=== PATIENT | male | born 1945 | race Caucasian/White ===

== ENCOUNTER 2017-07-29 16:39 | Emergency (ER) | payer MEDICARE, BC ==
[~2017-07-29] VITALS: Ht 172.7 cm; Wt 101.2 kg
[~2017-07-29 16:39] MED LIST: ACET-1966 PO; ASPI81TA94 PO; BUSP15TA69 PO; BUSP30TA18 PO; CEPH250C37 PO; CIPR-214 PO; DIAZ-311 PO; DIPH-740 PO; FAMO20TA28 PO; FENO145T PO; GABA-549 PO; HYDR-2966 PO; HYDR-318 PO; LISI-374 PO; MELA1TAB15 PO; NIF10 PO; PAZO200T2 PO; SERT-181 PO; SIMV-54 PO; TEMA-1 PO
[2017-07-29] MEDS ORDERED: LISI20TA29 PO (16:48)
[2017-07-29] MEDS ORDERED: amLODIPine BESYL(*) 5 MG TAB PO ONE (17:00)
--- NOTE | 2017-07-29 17:07 | ER Report ---
History and Physical Time Seen By MD: 16:45 Hx. of Stated Complaint: PT REPORTS CHANGES IN BLOOD PRESSURE, CHANGES IN MEDS HPI/ROS CHIEF COMPLAINT: htn HISTORY OF PRESENT ILLNESS: Pt has cancer and has had one kidney and prostate removed. PT currently in a chemo study in [place] and was told on Jul 20 that he should try to get off his HCTZ 25mg and decrease his Lisinipril 40mg due to the effect it is having on his remaining kidney function. PT stopped his hctz completely and decreased his lisinipril to 25mg. PT did not start any new blood pressure medications. PT has been keeping a blood pressure log and has found his blood pressure to be elevated ever since he has stopped his hctz and decreased his lisinipril. PT has had no headaches or cp. Pt came here today to get his blood pressure under control and then he planned on restarting his hctz and lisinipril at his old dosages. Pt states he has not spoken to his oncologist or pcp about other bp alternatives that may not effect his renal function. REVIEW OF SYSTEMS: Constitutional: No fever, no chills. Eyes: No discharge. ENT: No sore throat. Cardiovascular: No chest pain, no palpitations. Respiratory: No cough, no shortness of breath. Gastrointestinal: No abdominal pain, no vomiting. Genitourinary: No hematuria. Musculoskeletal: No back pain. Skin: No rashes. Neurological: No headache. Allergies: Coded Allergies: No Known Drug Allergies (Unverified , 07/29/17) Home Meds Reported Medications Lisinopril (LISINOPRIL) 20 Mg Tablet, 20 MG PO QDAY, TAB 07/29/17 Gabapentin (GABAPENTIN) 300 Mg Capsule, 300 MG PO DAILY, CAPSULE 04/09/17 Diphenhydramine Hcl (BENADRYL) 25 Mg Capsule, 25 MG PO HS, CAPSULE 04/09/17 Acetaminophen (TYLENOL) 325 Mg Tablet, 325 MG PO HS, TAB 04/09/17 Melatonin/Pyridoxine (MELATONIN 5 MG TABLET) 1 Each Tablet, 1 EACH PO HS Y for SLEEP 04/09/17 Buspirone Hcl (BUSPIRONE HCL) 30 Mg Tablet, 30 MG PO HS, #10 TAB 04/09/17 Buspirone Hcl (BUSPIRONE HCL) 15 Mg Tablet, 15 MG PO QAM, #10 TAB 04/09/17 Pazopanib Hcl (VOTRIENT) 200 Mg Tablet, 4 TAB PO DAILY 06/23/13 Simvastatin (SIMVASTATIN) 40 Mg Tablet, 40 MG PO HS 02/07/13 Sertraline Hcl (SERTRALINE HCL) 100 Mg Tablet, 1 TAB PO QDAY TAKE ONE TABLET BY MOUTH EVERY DAY 02/07/13 Aspirin (ASPIRIN) 81 Mg Tab.chew, 81 MG PO DAILY 02/07/13 Fenofibrate Nanocrystallized (FENOFIBRATE) 145 Mg Tablet, 145 MG PO QDAY 02/07/13 Diazepam (DIAZEPAM) 10 Mg Tablet, 10 MG PO HS Y for ANXIETY, #15 MG 02/07/13 Discontinued Reported Medications Hydrochlorothiazide (HYDROCHLOROTHIAZIDE) 25 Mg Tablet, 1 TAB PO QDAY TAKE ONE TABLET BY MOUTH EVERY DAY 02/07/13 Lisinopril (LISINOPRIL) 40 Mg Tablet, 40 MG PO QDAY 02/07/13 Past Medical/Surgical History PMhx: stoke in 1998, diabetes, hypertension, hypercholesterolemia, CPAP at night, Prostate Cancer in 2009, Fractures, PTSD, Anxiety, and Depression. He reports a history of renal cell carcinoma with mets to lungs and Pancreas. Pshx: cholecystectomy in 2004, Left Nephrectomy, and Tonsillectomy. Reviewed Nurses Notes: Yes Old Medical Records Reviewed: Yes Hx Smoking: No Smoking Status: Former Smoker Exposure to Second Hand Smoke?: No Hx Substance Use Disorder: No Hx Alcohol Use: No Constitutional Vital Sign - Last 24 Hours 07/29/17 07/29/17 07/29/17 07/29/17 16:40 16:44 16:47 16:49 Temp 97.7 Pulse 49 48 Resp 16 B/P (MAP) 194/96 196/104 (134) 194/96 (128) Pulse Ox 93 93 O2 Delivery Room Air 07/29/17 07/29/17 07/29/17 07/29/17 16:59 17:00 17:05 17:10 Pulse 47 48 50 B/P (MAP) 195/98 (130) Pulse Ox 93 90 89 07/29/17 07/29/17 07/29/17 07/29/17 17:15 17:20 17:23 17:25 Pulse 50 49 50 B/P (MAP) 186/98 (127) Pulse Ox 90 90 07/29/17 07/29/17 17:30 17:35 Pulse 48 49 B/P (MAP) 158/91 (113) Pulse Ox 91 91 Physical Exam General Appearance: The patient is alert, has no immediate need for airway protection and no signs of toxicity. Eyes: Pupils equal and round no pallor or injection, EOMI ENT: no pharyngeal erythema or exudates, Mucous membranes are moist Respiratory: There are no retractions, lungs are clear to auscultation. Cardiovascular: Regular rate and rhythm. pulses are equal and symmetrical Gastrointestinal: Abdomen is soft and non tender, no masses, bowel sounds normal, no guarding, no rigidity or rebound Neurological: Cranial nerves II-XII grossly intact, no sensory or motor loss Skin: Warm and dry, no rashes. Musculoskeletal: Neck is supple non tender, no vertebral tenderness Extremities are nontender, non swollen and have full range of motion. DIFFERENTIAL DIAGNOSIS: After history and physical exam differential diagnosis was considered for renal insuff, htn secondary to change in medication Medical Decision Making Data Points Result Diagram: 07/29/17 1700 07/29/17 1700 Laboratory Hematology Test 07/29/17 17:00 Red Blood Count 4.78 M/uL (4.00-5.60) Mean Corpuscular Volume 91.6 fL (80.0-96.0) Mean Corpuscular Hemoglobin 30.9 pg (26.0-33.0) Mean Corpuscular Hemoglobin Concent 33.7 g/dL (32.0-36.0) Red Cell Distribution Width 15.6 % (11.5-14.5) Mean Platelet Volume 8.4 fL (7.2-11.1) Neutrophils (%) (Auto) 71.3 % (39.4-72.5) Lymphocytes (%) (Auto) 17.1 % (17.6-49.6) Monocytes (%) (Auto) 9.3 % (4.1-12.4) Eosinophils (%) (Auto) 1.9 % (0.4-6.7) Basophils (%) (Auto) 0.4 % (0.3-1.4) Nucleated RBC Relative Count (auto) 0.0 /100WBC Neutrophils # (Auto) 3.3 K/uL (2.0-7.4) Lymphocytes # (Auto) 0.8 K/uL (1.3-3.6) Monocytes # (Auto) 0.4 K/uL (0.3-1.0) Eosinophils # (Auto) 0.1 K/uL (0.0-0.5) Basophils # (Auto) 0.0 K/uL (0.0-0.1) Nucleated RBC Absolute Count (auto) 0.00 K/uL Sodium Level 143 mmol/L (137-145) Potassium Level 4.0 mmol/L (3.5-5.0) Chloride Level 108 mmol/L (98-107) Carbon Dioxide Level 23 mmol/L (22-30) Blood Urea Nitrogen 28 mg/dl (9-21) Creatinine 1.50 mg/dl (0.66-1.25) Glomerular Filtration Rate Calc 46.0 Random Glucose 73 mg/dl (75-110) Calcium Level 9.0 mg/dl (8.4-10.2) Total Bilirubin 0.5 mg/dl (0.2-1.3) Aspartate Amino Transf (AST/SGOT) 34 U/L (0-35) Alanine Aminotransferase (ALT/SGPT) 45 U/L (0-56) Alkaline Phosphatase 46 U/L (0-126) Total Protein 7.1 gm/dl (6.3-8.2) Albumin 3.7 g/dl (3.5-5.0) Chemistry Test 07/29/17 17:00 White Blood Count 4.7 k/uL (4.5-11.0) Red Blood Count 4.78 M/uL (4.00-5.60) Hemoglobin 14.8 g/dL (14.0-18.0) Hematocrit 43.7 % (42.0-52.0) Mean Corpuscular Volume 91.6 fL (80.0-96.0) Mean Corpuscular Hemoglobin 30.9 pg (26.0-33.0) Mean Corpuscular Hemoglobin Concent 33.7 g/dL (32.0-36.0) Red Cell Distribution Width 15.6 % (11.5-14.5) Platelet Count 190 K/uL (150-450) Mean Platelet Volume 8.4 fL (7.2-11.1) Neutrophils (%) (Auto) 71.3 % (39.4-72.5) Lymphocytes (%) (Auto) 17.1 % (17.6-49.6) Monocytes (%) (Auto) 9.3 % (4.1-12.4) Eosinophils (%) (Auto) 1.9 % (0.4-6.7) Basophils (%) (Auto) 0.4 % (0.3-1.4) Nucleated RBC Relative Count (auto) 0.0 /100WBC Neutrophils # (Auto) 3.3 K/uL (2.0-7.4) Lymphocytes # (Auto) 0.8 K/uL (1.3-3.6) Monocytes # (Auto) 0.4 K/uL (0.3-1.0) Eosinophils # (Auto) 0.1 K/uL (0.0-0.5) Basophils # (Auto) 0.0 K/uL (0.0-0.1) Nucleated RBC Absolute Count (auto) 0.00 K/uL Glomerular Filtration Rate Calc 46.0 Calcium Level 9.0 mg/dl (8.4-10.2) Total Bilirubin 0.5 mg/dl (0.2-1.3) Aspartate Amino Transf (AST/SGOT) 34 U/L (0-35) Alanine Aminotransferase (ALT/SGPT) 45 U/L (0-56) Alkaline Phosphatase 46 U/L (0-126) Total Protein 7.1 gm/dl (6.3-8.2) Albumin 3.7 g/dl (3.5-5.0) ED Course/Re-evaluation Clinical Indication for ER IV: IV Access ED Course Spoke with pt at length about other blood pressure alternatives. I understand why they may not want him on an vandana-I and diuretic since he has only one kidney and baseline cr of 1.5. Suggest pt call his oncologist team in [place] and pcp to discuss alternative bp medications. Will attempt norvasc in ED since pts heart rate will not tolerate b-zachary. 07/29/2017 5:27:41 pm Pt was given norvasc 20 minutes ago. Pts bp is still elevated but going down currently 186/98. PT states he will restart his old medications in am. I spoke with him and his at length and suggested that they call there doctor tomorrow to see if they would like him on an alternative medication such as norvasc which will not affect his kidney function or if they prefer to keep him on his old dosage of hctz and lisinipril. Lisinipril is a good medication with multiple benefits but may not be the best choice at the dosage of 40mg daily for a pt wtih only one kidney. Pt and his state they will call in am. If they change his medicaiton he will require close follow up to see if it needs to be adjusted to higher or lower dosage. If they keep him on old medications his renal function will need to be monitored. 07/29/2017 5:41:31 pm Pt comfortable with going home. BP currently 158/91. PT without questions Decision to Disposition Date: Jul 29, 2017 Decision to Disposition Time: 17:30 Depart Departure Latest Vital Signs Vital Signs Date Time Temp Pulse Resp B/P (MAP) Pulse Ox O2 Delivery O2 Flow Rate FiO2 07/29/17 17:35 49 91 07/29/17 17:30 158/91 (113) 07/29/17 16:40 97.7 16 Room Air Impression: Primary Impression: Elevated blood pressure Condition: Improved Disposition: HOME OR SELF-CARE Referrals: CRISTÓBAL MEIER DO (PCP) 5 Days Patient Instructions: Hypertension (GEN) Additional Instructions: Call your doctor tomorrow to let them know that ever since you stopped the HCTZ and decreased your Lisinipril your blood pressures have been consistently elevated. Discuss with your doctor if they want you to go back to your prior dosage of both medications or if they would like to change blood pressure medication to Norvasc or another medication that may have less effect on your kidney function. Your creatine today is at your baseline level of 1.5 Continue to keep your blood pressure diary. Return for any concerns. PAULA NAIDU DO Jul 29, 2017 17:07
[2017-07-29 17:12] LABS: PLATELET COUNT, AUTOMATED 190 K/uL (150-450)
[2017-07-29 17:30] VITALS: BP 158/91
== END 2017-07-29 17:37 | disposition home or self-care (01) ==
LOC: ER 16:46
DX: I10 Essential (primary) hypertension (principal)
CPT/HCPCS: 85025; 99284; A9270; 82040; 82247; 82310; 82374; 82435; 82565; 82947; 84075; 84132; 84155; 84295; 84450; 84460; 84520

== ENCOUNTER → 2017-09-21 | Outpatient (CLI) | payer MEDICARE, BC ==
[~2017-09-21] MED LIST changes: -FENO145T PO; +FENO145T36 PO; +LISI20TA29 PO
--- NOTE | 2017-09-21 13:56 | RADIOLOGY IMAGING REPORT ---
FACILITY: [facility] - [place] PATIENT NAME: Riaz Eller : 1945 MR: [id number] V: [id number] EXAM DATE: ORDERING PHYSICIAN: CRISTÓBAL MEIER TECHNOLOGIST: Location: [facility] Patient: Riaz Eller : 1945 Visit/Account:[id number] Date of Sevice: 09/21/2017 Exam type: KNEE 3 VIEWS BILATERAL History: Bilateral knee pain Comparison: April 07, 2010. Findings: There is moderate narrowing of the medial compartment of the left knee with subchondral sclerosis and marginal spurring similar to the prior study. There are several faintly calcified ovoid loose evin s projecting posterior to the left knee on the lateral view of the largest measuring 1.4 cm in diamet er. There are moderate scattered changes of the left patellofemoral joint There is moderate narrowing of the medial compartment of the right knee with marginal osteophytes. T here are moderate degenerative changes of the right patellofemoral joint IMPRESSION: 1. Moderate degenerative changes involving both knees as detailed above Report Dictated By: Mare Jefferson MD at 09/21/2017 1:49 PM Report E-Signed By: Mare Jefferson MD at 09/21/2017 1:52 PM WSN:[email or web address]
== END ==
LOC: RAD 12:50
PROVIDERS: ATTEND Family Medicine
DX: M17.0 Bilateral primary osteoarthritis of knee (principal)

== ENCOUNTER → 2018-02-11 | Outpatient (CLI) | payer MEDICARE, BC ==
[~2018-02-11] MED LIST changes: +IOPAMIDOL 76% 75 ML INFUS BTL 75 ML ONE
--- NOTE | 2018-02-11 13:48 | RADIOLOGY IMAGING REPORT ---
FACILITY: [facility] - [place], [place] PATIENT NAME: Riaz Eller : 1945 MR: [id number] V: [id number] EXAM DATE: ORDERING PHYSICIAN: MARCELLUS BUSH TECHNOLOGIST: Location: [facility] Patient: Riaz Eller : 1945 Visit/Account:[id number] Date of Sevice: 02/11/2018 EXAMINATION: CT Chest Without and With Contrast 02/11/2018 10:00 AM HISTORY: Hypoxemia TECHNIQUE: Spiral scans were obtained through the chest before and during injection of nonionic iodi nated intravenous contrast. Contrast: 75 mL of IV Isovue 370. One of the following dose optimization techniques was utilized in the performance of this exam: Autom ated exposure control; adjustment of the mA and/or kV according to the patient's size; or use of an i terative reconstruction technique. Specific details can be referenced in the facility's radiology C T exam operational policy. COMPARISON STUDIES: Chest x-ray 07/21/2015. FINDINGS: Lungs / pleura: Irregular airspace consolidation with somewhat nodular appearance in the right lower lobe with smaller patchy airspace densities in the posterior right upper lobe. Pulmonary nodules dinora aterally. The largest foci in the posterolateral right base and to lateral pleural lesions are clear ly calcified granulomas, with a couple of additional punctate calcifications in the posterior left ba se. Some of the noncalcified basilar left lower lobe foci are stable since the CT abdomen, and likel y these are all granulomatous. Mediastinum / meryl: negative Heart / pericardium: Mild pericardial thickening or fluid which is a change from the CT abdomen. Vessels: Atherosclerosis includes coronary disease, not unexpected for age. Musculoskeletal / Body wall: Degenerative changes in the spine. Lymph node assessment: negative Lower neck: negative Upper abdomen: Heterogeneously enhancing ovoid mass in the tail the pancreas measures 4.4 x 3.7 x 3.7 cm. Mass at least partially encases the splenic artery. Duct in the tail distal to this is promine nt. There are calcifications in the pancreas suggesting chronic pancreatitis as well. No peripancre atic adenopathy or focal liver lesion evident. Left lobe of the liver is somewhat disproportionately prominent although without clear cirrhotic features otherwise. Prior cholecystectomy. Spleen is no t prominent. Granulomatous calcifications are present. Small upper pole right renal cortical cyst. Prior left nephrectomy. IMPRESSION: 1. Consolidation in the right lower lobe with smaller patchy foci in the posterior right upper lobe most consistent with pneumonia. 2. Pulmonary nodules with a likely granulomatous pattern. Some of the noncalcified nodules will war rant follow-up given the pancreatic mass. 3. Heterogeneous enhancing solid 4.4 cm mass in the pancreatic tail highly concerning for primary pa ncreatic malignancy. Report Dictated By: Moshe Daniel MD at 02/11/2018 1:14 PM Report E-Signed By: Moshe Daniel MD at 02/11/2018 1:43 PM WSN:[email or web address]
== END ==
LOC: CT 06:57
PROVIDERS: ATTEND Physician Assistant Medical
DX: J18.9 Pneumonia, unspecified organism (principal); R91.8 Other nonspecific abnormal finding of lung field; K86.9 Disease of pancreas, unspecified
CPT/HCPCS: 71270; Q9967

== ENCOUNTER 2018-03-17 19:55 | Emergency (ER) | payer MEDICARE, BC ==
[~2018-03-17 19:55] MED LIST changes: -IOPAMIDOL 76% 75 ML INFUS BTL 75 ML ONE
--- NOTE | 2018-03-17 19:58 | ER Report ---
History and Physical Time Seen By MD: 19:57 HPI/ROS CHIEF COMPLAINT: Elevated blood pressure readings HISTORY OF PRESENT ILLNESS: 72-year-old male with a history of hypertension on lisinopril 20 mg. Patient is undergoing chemotherapeutic treatment for renal cell carcinoma. He is doubled line study from [employer] in [place]. One of the potential side effects of the agencies on his elevated blood pressure. He's been recording his blood pressure daily since he started the medication several days ago. His blood pressure readings have been elevated. Patient notes no associated symptoms such as headache, blurry vision, chest pain, shortness of breath or leg edema. REVIEW OF SYSTEMS: Respiratory: No cough, no dyspnea. Cardiovascular: No chest pain, no palpitations. Gastrointestinal: No vomiting, no abdominal pain. Musculoskeletal: No back pain. Allergies: Coded Allergies: No Known Drug Allergies (Unverified , 07/29/17) Home Meds Active Scripts Amlodipine Besylate (NORVASC) 5 Mg Tablet, 1 TAB PO QDAY for BP control, #30 TAB Prov:SHANA WATSON DO 03/17/18 Reported Medications [Calithera] No Conflict Check 03/17/18 Cabozantinib S-Malate (Cabometyx) 60 Mg Tablet 03/17/18 Lisinopril (LISINOPRIL) 20 Mg Tablet, 20 MG PO QDAY, TAB 07/29/17 Gabapentin (GABAPENTIN) 300 Mg Capsule, 300 MG PO DAILY, CAPSULE 04/09/17 Diphenhydramine Hcl (BENADRYL) 25 Mg Capsule, 25 MG PO HS, CAPSULE 04/09/17 Acetaminophen (TYLENOL) 325 Mg Tablet, 325 MG PO HS, TAB 04/09/17 Melatonin/Pyridoxine (MELATONIN 5 MG TABLET) 1 Each Tablet, 1 EACH PO HS PRN for SLEEP 04/09/17 Buspirone Hcl (BUSPIRONE HCL) 30 Mg Tablet, 30 MG PO HS, #10 TAB 04/09/17 Buspirone Hcl (BUSPIRONE HCL) 15 Mg Tablet, 15 MG PO QAM, #10 TAB 04/09/17 Simvastatin (SIMVASTATIN) 40 Mg Tablet, 40 MG PO HS 02/07/13 Sertraline Hcl (SERTRALINE HCL) 100 Mg Tablet, 1 TAB PO QDAY TAKE ONE TABLET BY MOUTH EVERY DAY 02/07/13 Aspirin (ASPIRIN) 81 Mg Tab.chew, 81 MG PO DAILY 02/07/13 Fenofibrate Nanocrystallized (FENOFIBRATE) 145 Mg Tablet, 145 MG PO QDAY 02/07/13 Diazepam (DIAZEPAM) 10 Mg Tablet, 10 MG PO HS PRN for ANXIETY, #15 MG 02/07/13 Discontinued Reported Medications Pazopanib Hcl (VOTRIENT) 200 Mg Tablet, 4 TAB PO DAILY 06/23/13 Past Medical/Surgical History Hypertension, renal cell carcinoma Reviewed Nurses Notes: Yes Old Medical Records Reviewed: Yes Hx Smoking: No Smoking Status: Former Smoker Exposure to Second Hand Smoke?: No Hx Substance Use Disorder: No Hx Alcohol Use: No Constitutional Vital Sign - Last 24 Hours 03/17/18 03/17/18 03/17/18 03/17/18 20:00 20:04 20:21 20:25 Temp 98.1 Pulse 63 59 Resp 18 9 B/P (MAP) 183/99 (127) 183/99 162/86 (111) Pulse Ox 95 91 O2 Delivery Room Air 03/17/18 03/17/18 20:30 20:35 Pulse 55 Resp 8 B/P (MAP) 156/77 (103) Pulse Ox 93 Physical Exam Vital signs stable, blood pressure grossly elevated to 183/99 General Appearance: The patient is alert, has no immediate need for airway protection and no current signs of toxicity. HEENT: Pupils equal and round no injection. Respiratory: Chest is non tender, lungs are clear to auscultation. Cardiac: regular rate and rhythm Gastrointestinal: Abdomen is soft and non tender, no masses, bowel sounds normal. Musculoskeletal: Neck: Neck is supple and non tender. Extremities have full range of motion and are non tender. Skin: No rashes or lesions. DIFFERENTIAL DIAGNOSIS: After history and physical exam differential diagnosis was considered for elevated blood pressure, adverse reaction of chemotherapy. Medical Decision Making ED Course/Re-evaluation ED Course Patient was admitted to an examination room. H&P was done. The differential diagnoses was considered. Patient with elevated blood pressure. He shows his documentation record of his blood pressures. They are elevated compared to his baseline since starting on his new chemotherapeutic agents. Patient was given Norvasc 5 mg by mouth. His blood pressure improved. He's advised to follow-up with his chemotherapeutic study providers to see if he should continue on Norvasc a prescription for Norvasc 5 mg, #30 was provided. Decision to Disposition Date: Mar 17, 2018 Decision to Disposition Time: 20:17 Depart Departure Latest Vital Signs Vital Signs Date Time Temp Pulse Resp B/P (MAP) Pulse Ox O2 Delivery O2 Flow Rate FiO2 03/17/18 20:35 55 8 93 03/17/18 20:30 156/77 (103) 03/17/18 20:04 98.1 Room Air Impression: Primary Impression: Elevated blood pressure Additional Impressions: Renal cell carcinoma Chemotherapy adverse reaction Condition: Improved Disposition: HOME OR SELF-CARE Referrals: CRISTÓBAL MEIER DO (PCP) New Scripts Amlodipine Besylate (NORVASC) 5 Mg Tablet 1 TAB PO QDAY for BP control, #30 TAB Prov: SHANA WATSON DO 03/17/18 Patient Instructions: Hypertension (ED) Additional Instructions: Follow-up with your study. Contact for consideration of blood pressure management Take Norvasc 5 mg per day Problem Qualifiers Additional Impressions: Renal cell carcinoma Laterality: unspecified laterality Qualified Codes: C64.9 - Malignant neoplasm of unspecified kidney, except renal pelvis Chemotherapy adverse reaction Encounter type: initial encounter Qualified Codes: T45.1X5A - Adverse effect of antineoplastic and immunosuppressive drugs, initial encounter SHANA WATSON DO Mar 17, 2018 19:58
[2018-03-17] MEDS ORDERED: amLODIPine BESYL(*) 5 MG TAB PO ONE (20:15)
[2018-03-17] MEDS ORDERED: AMLO-101 PO (20:21)
[2018-03-17 20:30] VITALS: BP 156/77
[2018-03-17] MEDS ORDERED: [UNRECOGNIZED DRUG - OTHER] (20:36)
[2018-03-17] MEDS ORDERED: CABO60TA (20:36)
== END 2018-03-17 21:25 | disposition home or self-care (01) ==
LOC: ER 20:39
DX: I10 Essential (primary) hypertension (principal); C64.9 Malignant neoplasm of unspecified kidney, except renal pelvis; T45.1X5A Adverse effect of antineoplastic and immunosuppressive drugs, initial encounter
CPT/HCPCS: 99283; A9270

== ENCOUNTER → 2018-08-12 | Outpatient (CLI) | payer MEDICARE, BC ==
[~2018-08-12] MED LIST changes: +AMLO-101 PO; +CABO60TA; +[UNRECOGNIZED DRUG - OTHER]
--- NOTE | 2018-08-12 12:50 | RADIOLOGY IMAGING REPORT ---
FACILITY: [facility] PATIENT NAME: Riaz Eller : 1945 MR: [id number] V: [id number] EXAM DATE: ORDERING PHYSICIAN: JUANCARLOS PONCE TECHNOLOGIST: Location: [facility] - [place], [place] Patient: Riaz Eller : 1945 Visit/Account:[id number] Date of Sevice: 08/12/2018 Study: CT scan of the thoracic spine without contrast. Indication:Low back pain Comparison study:None Technique: Multiple axial images are obtained through the thoracic spine without the use of intraveno us contrast. Coronal and sagittal two-dimensional reconstructions were made from the original data se t. One of the following dose optimization techniques was utilized in the performance of this exam: Autom ated exposure control; adjustment of the mA and/or kV according to the patient's size; or use of an i terative reconstruction technique. Specific details can be referenced in the facility's radiology C T exam operational policy. The examination demonstrates no evidence of acute fracture of the thoracic vertebrae. There is no deacon dence of wedging of the thoracic vertebrae. There is no evidence of lytic or blastic bony lesions. Alignment:There is normal alignment of the thoracic vertebrae. There are flowing osteophytes present throughout the thoracic spine. This is most consistent with DISH. Paraspinal soft tissues: Unremarkable Incidental note is made of calcified lymph nodes present within the mediastinum and right hilum. Disc spaces: There is no evidence of significant disc pathology. The thoracic disc spaces are preserved throughout . IMPRESSION: No acute bony abnormality identified. There are extensive flowing osteophytes present thr oughout. This is most consistent with DISH. Report Dictated By: Satish Cummings at 08/12/2018 12:40 PM Report E-Signed By: Satish Cummings at 08/12/2018 12:46 PM WSN:[email or web address]
--- NOTE | 2018-08-12 12:56 | RADIOLOGY IMAGING REPORT ---
FACILITY: [facility] PATIENT NAME: Riaz Eller : 1945 MR: [id number] V: [id number] EXAM DATE: ORDERING PHYSICIAN: JUANCARLOS PONCE TECHNOLOGIST: Location: [facility] Patient: Riaz Eller : 1945 Visit/Account:[id number] Date of Sevice: 08/12/2018 Study: CT scan of the lumbar spine without contrast. Indication:Low back pain Comparison study:None Technique: Multiple axial images are obtained through the lumbar spine without the use of intravenous contrast. Coronal and sagittal two-dimensional reconstructions were made from the original data set. One of the following dose optimization techniques was utilized in the performance of this exam: Autom ated exposure control; adjustment of the mA and/or kV according to the patient's size; or use of an i terative reconstruction technique. Specific details can be referenced in the facility's radiology C T exam operational policy. The examination demonstrates mild wedging of the L3 vertebral body. The acuity of this fracture is un known. There is no fluid collection or inflammation around the L3 vertebral body. This mitigates for a chronic compression fracture. The remainder of the lumbar vertebrae are unremarkable in appearance. Alignment:There is normal alignment of the lumbar vertebrae. Paraspinal soft tissues: Unremarkable Disc spaces: L1/2:At this level, there is no significant disc pathology identified. There is no significant neural foraminal stenosis or spinal stenosis. L2/3: At this level, there is a diffuse disc bulge. There appears to be moderate spinal stenosis and mild bilateral neural foraminal stenosis present at this level. L3/4: At this level, there is a diffuse disc bulge. There is facet and ligamentous hypertrophy. Ther e appears to be moderate spinal stenosis present at this level. There is mild bilateral neural forami nal stenosis. L4/5: At this level, there is a diffuse disc bulge. There is facet and ligamentous hypertrophy. There appears to be moderate spinal stenosis and mild right and moderate to severe left neural foraminal s tenosis present. L5/S1: At this level, there is no significant disc pathology. There is facet and ligamentous hypertro phy. There is no evidence of spinal stenosis. There is moderate bilateral neural foraminal stenosis. IMPRESSION: Chronic-appearing L3 compression fracture. Multilevel lumbar disc pathology and spondylopathy present as described. Report Dictated By: Satish Cummings at 08/12/2018 12:46 PM Report E-Signed By: Satish Cummings at 08/12/2018 12:52 PM WSN:[email or web address]
== END ==
LOC: CT 09:55
PROVIDERS: ATTEND Orthopaedic Surgery
DX: S32.038A Other fracture of third lumbar vertebra, initial encounter for closed fracture (principal); M47.896 Other spondylosis, lumbar region
CPT/HCPCS: 72128; 72131